=== PATIENT | female | born 1990 | race Caucasian/White ===

== ENCOUNTER 2018-07-03 13:17 | Emergency (ER) | END 2018-07-03 14:59 | disposition home or self-care (01) ==

== ENCOUNTER 2018-11-21 17:53 | Emergency (ER) | payer SELFPAY ==
[~2018-11-21] VITALS: Ht 167.6 cm; Wt 66.0 kg
[~2018-11-21 17:53] MED LIST: IBUP-1542 PO
[2018-11-21 18:40] VITALS: BP 143/88; PULSE 84; RESP 16; Ht 167.6 cm; Wt 66.0 kg
== END 2018-11-21 20:58 | disposition left against medical advice (07) ==
LOC: FTE 17:53
DX: Z53.21 Procedure and treatment not carried out due to patient leaving prior to being seen by health care provider (principal)